=== PATIENT | male | born 1960 | race Caucasian/White ===

== ENCOUNTER → 2017-01-11 | Day surgery (SDC) | payer OTHER ==
[2017-01-04 15:02] LABS: BASOPHIL # 0.1 10^3/uL (0.0-0.1); BASOPHIL % 0.5 % (0.0-0.2); EOSINOPHIL # 0.1 10^3/uL (0.0-0.2); EOSINOPHIL % 0.8 % (0.0-5.0); HEMATOCRIT 46.3 % (37.0-53.0); HEMOGLOBIN 15.7 g/dL (13.9-16.3); LYMPHOCYTES # 3.1 10^3/uL (1.0-4.8); LYMPHOCYTES % 28.5 % (24.0-44.0); MEAN CELL HGB 32.8 pg (26-34); MEAN CELL HGB CONCENTRATION 33.9 g/dL (33-37); MEAN CORP VOLUME 96.7 fL (78-100); MEAN PLATELET VOLUME 9.4 fL (7.8-11.0); MONOCYTES # 1.4 10^3/uL (0.3-0.8); MONOCYTES % 12.9 % (5.0-12.0); NEUTROPHIL # 6.2 10^3/uL (1.8-7.7); NEUTROPHILS % 57.1 % (41.0-85.0); RED CELL DISTRIBUTION WIDTH 13.8 % (11.5-14.5); WHITE BLOOD CELL 10.9 10^3/uL (4.5-11.0)
[2017-01-04 15:57] LABS: CARBON DIOXIDE 25.6 mmol/L (20.0-32)
[~2017-01-11] VITALS: Ht 180.3 cm; Wt 78.0 kg
[2017-01-11] VITALS (9 sets, daily range): BP systolic 135–153; BP diastolic 72–97
[~2017-01-11] MED LIST: CIPR500T86 PO; DECADRON ONE; DIPRIVAN IV ONE; FLUV100T2 PO; LACTATED RINGERS 1,000 ML IV SCH; LEVAQUIN 100 ML IV ONE; NORCO 7.5MG PO PRN; OLAN20TA3 PO; OXCA300T3 PO; SODIUM CHLORIDE IR ONE; SUBLIMAZE ONE; TORADOL ONE; TRAM50TA PO; VERSED ONE; ZEMURON IV ONE; ZOFRAN ONE
--- NOTE | 2017-01-11 12:10 | OPH ---
DATE OF SURGERY: 01/11/2017 PREOPERATIVE DIAGNOSIS: Left hydrocele. FINAL DIAGNOSIS: Left hydrocele. PROCEDURES: Left hydrocelectomy. DESCRIPTION OF PROCEDURE: The patient was brought to the operating room, was put in supine position on the operating room table. After the patient was given a satisfactory and adequate LMA general anesthesia, the genitalia was then prepped and draped aseptically in the usual manner. First, a transverse incision was then done in the left hemiscrotal sac. The incision was deepened up to the tunica. All bleeders were promptly fulgurated. By blunt and sharp dissection, the tunica was dissected and the tunica was opened and a lot of fluid was then removed from around the testicle. The ____ sac was then excised ____ with the epididymis and testis. Then, all bleeders were fulgurated and then running suture of 3-0 chromic catgut was then done in the edges of the tunica. After this was done, there was no other abnormality noted. No other bleeding noted. So, the left testis was put back in its normal anatomical position in the left hemiscrotal sac and a small Muna drain was placed in that area. After that, the scrotal skin incision was then closed in 2 layers with the use of 2-0 chromic catgut in an interrupted fashion. After this was done, the procedure was terminated. ____ applied. The patient was awakened, was transferred to the recovery room in stable condition. Jaziel Sims MD DR: REAGAN/sriram JOB# [id number]
== END ==
LOC: SURG 00:25
PROVIDERS: ATTEND Urology
DX: N43.3 Hydrocele, unspecified (principal)
CPT/HCPCS: 36415; 55500; 80051; 82565; 84520; 85025; 85610; 85730; 93005; J1100; J1885; J2250; J2405; J3010; J3490; J7030